=== PATIENT | female | born 1965 | race African-American/Black ===

== ENCOUNTER 2016-05-15 09:08 | Emergency (ER) | payer OTHER ==
[2016-05-15 09:17] VITALS: BP 112/87
[2016-05-15 09:28] LABS: Urine Bilirubin Negative (NEGATIVE); Urine Blood Negative /ul (NEGATIVE); Urine Ketone Negative (NEGATIVE); Urine Nitrite Negative (NEGATIVE); Urine Protein Negative (NEGATIVE); Urine Specific Gravity >=1.030 SP.GR. (1.005-1.010); Urine Urobilinogen Normal (NORMAL); Urine pH 5.5 pH (5.0-7.0)
[2016-05-15 09:37] LABS: Urine Appearance Clear; Urine Bacteria TRACE; Urine Color Yellow; Urine RBC None Seen /hpf (0-5); Urine WBC None Seen /hpf (0-5)
--- OUTSIDE RECORDS SUMMARY | 2016-05-15 10:00 | XMS REPORT | Summary of Care ---
:1965 Author Organization [facility] Address [address] [place] [address] Care Team Providers Name Role Phone Josseline Driscoll Primary Care Physician Encounter Date(s): 03/04/16 - 03/04/16 [facility] Cordelia Murillo, [address] [place], [place] [address] Discharge Disposition: 01 Discharged to Home or Self Care Attending Physician: Harley Machado NP Vital Signs No data available for this section Problem List Condition Effective Dates Status Health Status Informant Anemia(Confirmed) Active Asthma(Confirmed) Active Hypertension(Confirmed) Active Seizure disorder(Confirmed) Active Tuberculosis(Confirmed) Active Allergies, Adverse Reactions, Alerts Substance Reaction Severity Status gabapentin upsets stomach Active ibuprofen upsets stomach Active NSAIDs Active Medications cyclobenzaprine Oral, 0 Refill(s), Start Date: 08/10/15 14:06:00 CDT Start Date: 08/10/15 Status: OrderedDepo-Cobolin mcg, IM, qMonth, 0 Refill(s), Start Date: 08/10/15 14:06:00 CDT Start Date: 08/10/15 Status: OrderedFLUoxetine Oral, 0 Refill(s), Start Date: 08/10/15 14:07:00 CDT Start Date: 08/10/15 Status: OrderedIron Chews mg, Oral, Daily, 0 Refill(s), Start Date: 08/10/15 14:07:00 CDT Start Date: 08/10/15 Status: Orderedlisinopril Oral, Daily, 0 Refill(s), Start Date: 08/10/15 14:09:00 CDT Start Date: 08/10/15 Status: Orderedmeloxicam 15 mg oral tablet tab(s), Oral, Daily, 0 Refill(s), Start Date: 08/10/15 14:07:00 CDT Start Date: 08/10/15 Status: Orderedpantoprazole Daily, 0 Refill(s), Start Date: 08/10/15 14:08:00 CDT Start Date: 08/10/15 Status: OrderedPercocet 5/325 oral tablet 2 tab(s), Oral, q6hr, PRN for pain, X 3 days, # 15 tab(s), 0 Refill(s) Start Date: 09/23/13 Stop Date: 09/26/13 Status: Completedpotassium citrate Oral, 0 Refill(s), Start Date: 08/10/15 14:07:00 CDT Start Date: 08/10/15 Status: Orderedranitidine 0 Refill(s), Start Date: 08/10/15 14:08:00 CDT Start Date: 08/10/15 Status: OrderedtraZODone Oral, 0 Refill(s), Start Date: 08/10/15 14:07:00 CDT Start Date: 08/10/15 Status: OrderedValtrex 1 g oral tablet 1 tab(s), Oral, TID, # 21 tab(s), 0 Refill(s) Start Date: 09/23/13 Stop Date: 09/30/13 Status: Ordered Results No data available for this section Immunizations No data available for this section Procedures Procedure Date Related Diagnosis Body Site Knee replacement1 2013 section 1991 section 1985 section 1984 1right Social History No data available for this section Assessment and Plan No data available for this section
--- OUTSIDE RECORDS SUMMARY | 2016-05-15 10:00 | XMS REPORT | Continuity of Care Document ---
:1965 Author Organization [facility] ([facility]) Address [address] [place] [address] Phone [phone] Care Team Providers Name Role Phone Provider, No-Primary Care Primary Care Provider Unavailable Source Comments This disclosure is being made pursuant to the Care Everywhere program, applicable federal and state laws, and may not contain all informaitonavailable regarding this patient.[facility] ([facility]) Active Allergies and Adverse Reactions Allergen Noted Date Severity Reactions Comments Gabapentin 01/05/2014 Angioedema Ibuprofen Stomach Pain,OTHER flares up her GERD Tramadol 07/29/2012 Nausea & Vomiting Acid reflux Current Medications Prescription Sig. Disp. Refills Start Date End Date Status albuterol (VENTOLIN use 2 Puffs by Active HFA) 90 inhalation every 6 mcg/Actuation hours as needed for inhaler Wheezing. albuterol use 0.5 mL by Active (PROVENTIL) 5 mg/mL inhalation every 6 nebulizer solution hours as needed for Wheezing. fluticasone-salmeter use 1 Puff by Active ol (ADVAIR 100-50) inhalation as needed. 100-50 mcg/Dose inhaler PANTOPRAZOLE SODIUM Take 40 mg by mouth Active (PROTONIX PO) daily. PROMETHAZINE HCL Take 40 mg by mouth Active (PROMETHAZINE PO) as needed. potassium chloride Take 10 mEq by mouth Active SA (K-DUR, KLOR-CON daily. M10) 10 mEq tablet cyclobenzaprine 10 Take 1 Tab by mouth 3 30 Tab 0 08/05/2012 Active mg tablet times daily as needed. Indications: MUSCLE SPASM CALCIUM Take by mouth. Active CARBONATE/VITAMIN D3 (VITAMIN D-3 PO) ranitidine 150 mg Take 1 Tab by mouth 2 30 Tab 11 12/21/2013 Active tablet times daily. Indications: GASTROESOPHAGEAL REFLUX divalproex 500 mg EC Take 2 Tabs by mouth 60 Tab 5 03/09/2014 Active tablet at bedtime. Indications: DEPRESSION ASSOCIATED WITH MANIC DEPRESSIVE DISORDER amitriptyline 50 mg Take 1 Tab by mouth 30 Tab 5 03/09/2014 Active tablet at bedtime. Indications: NEUROPATHIC PAIN lisinopril-hydrochlo Take 1 tablet by Active rothiazide 20-12.5 mouth daily mg per tablet meloxicam 15 mg Take 15 mg by mouth Active tablet daily acyclovir 200 mg Take 200 mg by mouth Active capsule as needed. baclofen 10 mg Take 10 mg by mouth 3 Active tablet times daily as needed. ferrous sulfate 325 Take 325 mg by mouth Active mg (65 mg iron) 2 times daily. tablet FLUoxetine 20 mg Take 3 capsules (60 90 capsule 3 03/22/2015 Active capsule mg total) by mouth daily. ziprasidone 40 mg Take 1 capsule (40 mg 60 capsule 5 03/22/2015 Active capsule total) by mouth 2 times daily. mirtazapine 15 mg Take 1/2 tab, 7.5 mg 30 tablet 3 03/22/2015 Active tablet for 6 days, then increase to 15 mg.. Active Problems Problem Noted Date Obsessive compulsive disorder 12/09/2014 Chronic pain 04/21/2014 Chronic low back pain 04/21/2014 Abnormal uterine bleeding 10/26/2013 Hypertension 10/26/2013 Painful total knee replacement 08/23/2013 Knee pain 06/29/2013 Knee strain 06/29/2013 Epilepsy 06/08/2013 Overview: Patient had been having intractable epilepsy for years. Facet arthropathy, lumbosacral 06/03/2013 Facet arthropathy, lumbar 02/19/2013 Herpes zoster 10/22/2012 Depressive disorder 10/15/2012 Facet arthropathy 08/04/2012 Borderline personality disorder 10/21/2011 Myopia with astigmatism, OU 10/21/2011 Physical therapy 07/19/2008 GERD (gastroesophageal reflux disease) 07/15/2008 Disorder of bone and cartilage, unspecified 02/25/2006 Resolved Problems Problem Noted Date Resolved Date Acromioclavicular (joint) (ligament) sprain 06/10/2008 10/26/2013 Pain in joint, shoulder region 06/07/2008 10/26/2013 Chondromalacia 09/08/2007 10/26/2013 Other chest pain 04/02/2007 10/26/2013 Other synovitis and tenosynovitis 07/28/2006 10/26/2013 Pain in joint, lower leg 07/10/2006 10/26/2013 Pain in limb 07/03/2006 10/26/2013 Lumbago 02/25/2006 10/26/2013 Other convulsions 12/03/2005 10/26/2013 Dysphagia 09/17/2005 10/26/2013 Overview: problem slitter service and setter replacement for go-live --MAL JOINT PAIN-ANKLE 12/17/2002 10/26/2013 Tibialis tendinitis 08/21/1999 10/26/2013 Social History Tobacco Use Types Packs/Day Years Used Date Light Tobacco Smoker Cigarettes 0.1 4 Smokeless Tobacco: Never Used Tobacco Cessation:Ready to Quit: No; Counseling Given: Yes Comments: Alcohol Use Drinks/Week oz/Week Comments Yes 2 Glasses of wine occasional 1 Cans of beer Last Filed Vital Signs Vital Sign Reading Time Taken Blood Pressure 136/77 03/22/2015 3:07 PM BILLET EXAMINER Pulse 85 03/22/2015 3:07 PM BILLET EXAMINER Temperature 36.6 C (97.9 F) 03/22/2015 3:07 PM BILLET EXAMINER Respiratory Rate 15 03/09/2014 4:32 PM BILLET EXAMINER Height 1.689 m (5' 6.5") 04/19/2014 9:27 AM CDT Weight 100 kg (220 lb 7.4 oz) 03/22/2015 3:04 PM BILLET EXAMINER Body Mass Index 35.05 03/22/2015 3:04 PM BILLET EXAMINER Oxygen Saturation 98% 04/19/2014 10:25 AM CDT Plan of Care Health Maintenance Due Date Last Done Comments Hepatitis B Vaccine (1 of 3 - Primary 1965 Series) Tdap Vaccine 06/22/1978 MMR Vaccine 06/22/1985 Td Vaccine 06/22/1985 Pneumococcal Vaccine (1 of 1 - 06/22/1986 PPSV23) Mammogram 06/29/2014 06/29/2013 Influenza Vaccine: Seasonal (#1) 09/11/2015 Cervical Cancer Screening 09/01/2018 09/01/2013, 06/29/2013 Lipid Disorder Screening 02/02/2020 02/01/2015, 06/29/2013, 10/21/2011 Results from Last 3 Months Not on file
[2016-05-15] MEDS ORDERED: ACETAMINOPHEN 325 MG TABLET PO ONE (10:01)
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
[2016-05-15] MEDS ORDERED: ACETAMINOPHEN 325 MG TABLET ONE (10:10)
[2016-05-15] MEDS ORDERED: KETOROLAC TROMETHAMINE 60 MG/2 ML VIAL IM ONE ×2 (10:47→10:56)
== END 2016-05-15 10:47 | disposition home or self-care (01) ==
LOC: ER 09:08
DX: S40.011A Contusion of right shoulder, initial encounter (principal); S83.91XA Sprain of unspecified site of right knee, initial encounter; W10.9XXA Fall (on) (from) unspecified stairs and steps, initial encounter; Y93.9 Activity, unspecified; Y92.008 Other place in unspecified non-institutional (private) residence as the place of occurrence of the external cause

== ENCOUNTER 2016-09-04 05:49 | Inpatient (IN) | payer OTHER ==
--- OUTSIDE RECORDS SUMMARY | 2016-09-04 05:54 | XMS REPORT | Summary of Care ---
:1965 Author Organization [facility] Address [address] [place] [address] Care Team Providers Name Role Phone Josseline Driscoll Primary Care Physician Encounter Date(s): 07/15/16 - 07/15/16 [facility] [address] [place], [place] [address] Discharge Diagnosis: Lumbar degenerative disc disease Discharge Disposition: 01 Discharged to Home or Self Care Attending Physician: Harley Machado NP Referring Physician: SNOW Vieyra Vital Signs Most recent to oldest [Reference Range]: 1 Peripheral Pulse Rate [60-100 bpm] 80 bpm (07/15/16 1:35 PM) Blood Pressure [90-130/60-90 mmHg] 167/89mmHg *HI* (07/15/16 1:35 PM) Mean Arterial Pressure, Cuff 115 mmHg (07/15/16 1:35 PM) Most recent to oldest [Reference Range]: 1 Height/Length Measured 167 cm (07/15/16 1:35 PM) Weight Dosing 105.70 kg1 (07/15/16 1:42 PM) Weight Measured 105.7 kg (07/15/16 1:35 PM) BSA Measured 2.13 m2 (07/15/16 1:35 PM) Body Mass Index Measured 37.9 kg/m2 (07/15/16 1:35 PM) 1Result Comment: This result was because the dosing weight was either not entered or it is>30 days old. This result is based off: Weight Measured July 15, 2016 13:35:00 CDT by Fidel Garcia Wireless Construction Manager Problem List Condition Effective Dates Status Health [...] 08/10/15 14:07:00 CDT Start Date: 08/10/15 Status: Orderedindomethacin 50 mg oral capsule 1 cap(s), Oral, TID, PRN for arthritis, # 30 cap(s), 0 Refill(s), Start Date: 13:58:00 CDT, Pharmacy: [facility], [address],[place], [place] Start Date: 07/15/16 Status: OrderedIron Chews mg, Oral, Daily, 0 [...]
[2016-09-04] MEDS ORDERED: RINGER'S SOLUTION,LACTATED 1,000 ML IV PRN (06:00)
[2016-09-04] MEDS ORDERED: TRANEXAMIC ACID 1,000 MG in NORMAL SALINE 100 ML IV PRN (06:00)
[2016-09-04] MEDS ORDERED: ceFAZolin SODIUM 1 GM VIAL IV PRN (06:00)
[2016-09-04] MEDS ORDERED: MORPHINE SULFATE 15 MG TABLET.SA PO PRN (06:00)
[2016-09-04] MEDS ORDERED: ROPIVACAINE HCL/PF 100 MG, KETOROLAC TROMETHAMINE 30 MG, EPINEPHrine 0.2 MG in NORMAL S... IJ PRN (06:00)
[2016-09-04] MEDS ORDERED: RINGER'S SOLUTION,LACTATED 900 ML IV ONE (07:45)
[2016-09-04] MEDS ORDERED: RINGER'S SOLUTION,LACTATED 1,000 ML IV ONE (08:40)
[2016-09-04] MEDS ORDERED: ACETAMINOPHEN 500 MG TABLET PO PRN (09:59)
[2016-09-04] MEDS ORDERED: HYDROmorphone HCL 1 MG/ML DISP.SYRIN IV PRN (09:59)
[2016-09-04] MEDS ORDERED: ONDANSETRON HCL/PF 2 MG/ML VIAL IV PRN (09:59)
[2016-09-04] MEDS ORDERED: MAGNESIUM HYDROXIDE 30 ML UDC PO PRN (09:59)
[2016-09-04] MEDS ORDERED: ZOLPIDEM TARTRATE 5 MG TABLET PO PRN (09:59)
[2016-09-04] MEDS ORDERED: MAG HYDROX/ALUMINUM HYD/SIMETH 30 ML UDC PO PRN (09:59)
[2016-09-04] MEDS ORDERED: PROMETHAZINE HCL 5 MG in DEXTROSE 5 % IN WATER 50 ML IV PRN ×2 (09:59)
[2016-09-04] MEDS ORDERED: diphenhydrAMINE HCL 50 MG/ML VIAL IV PRN (09:59)
--- NOTE | 2016-09-04 10:03 | OR ---
Operative Report - Dictated Report Narrative: Date: 09/04/2016 Preoperative diagnosis: Left Knee degenerative joint disease. Postoperative diagnosis: Left Knee degenerative joint disease. Procedure: Left Total knee arthroplasty. Surgeon: Binh Rodriguez M.D. Printed Circuit Board Panels Plater: Mehran Sofia PA-C Anesthesia: Spinal with regional block and local periarticular joint injection. Complications: None Specimens: Bone for disposal. Estimated blood loss: Minimal. Tourniquet time: 85 Minutes at 325 millimeters of mercury. Retained implants: Depuy Attune size 6 narrow left lugged cemented posterior stabilized femoral component. Size 5 fixed-bearing cemented tibial platform. 6 by 5 millimeter posterior stabilized cross-linked tibial insert. 38 millimeter medialized patella button. Indications: Mrs. Naylor is a 51-year-old female who has had long-standing left knee pain and arthrosis. This patient was followed in my clinic for period of time with significant complaints of left knee pain consistent with arthritic changes. She had failed conservative measures including, but not limited to, activity modification, passage of time, medications, and other conservative measures. Patient wished to proceed with surgical treatment. The risks, benefits, and alternatives were discussed in clinic. The risks of , blood clots, bleeding, infection, nerve/tendon blood vessel/ injury, malposition of components, intraoperative fracture, postoperative limited range of motion, persistent pain, failure of components, and need for additional procedures. Patient wished to proceed consent was obtained after answering all questions. Procedure: After marking the correct extremity on the floor, the patient was taken to the operating room. A timeout was performed. IV antibiotics consisting of Ancef were administered prior to the procedure. A regional followed by spinal anesthetic was induced by anesthesia, per my request, on the operative table with all bony prominences well-padded. Dunn catheter was placed, and a bump was placed under the operative side buttock. SCDs and YOJANA hose were utilized on the nonoperative leg. A well-padded tourniquet was applied to the operative thigh. The operative leg was then pre-scrubbed with alcohol prepped, and draped in a standard sterile fashion. After exsanguinating the extremity with an Esmarch bandage, the tourniquet was inflated. After marking out the anterior knee for standard incision centered over the patella, the skin was incised and dissected down to the joint retinaculum. The joint retinaculum was marked out as well as the horizontal axis of the patella, and a standard medial parapatellar arthrotomy was then made. The most proximal aspect of the quadriceps tendon and the patella tendon insertion were protected from release. A partial synovectomy was performed as well as a resection of the infrapatellar fat pad. The distal femoral fat pad proximal to the trochlea was also resected using cautery. The soft tissues were elevated off the medial aspect of the proximal tibia using a Morales elevator ensuring that we did not transect the medial collateral ligament. Upon initial evaluation range of motion was approximately 0 degrees to 130 degrees of flexion. There were signs of advanced arthrosis in the medial and patellofemoral joint spaces. There were large marginal osteophytes which were removed with a rongeur. The knee was hyperflexed and the patella was tucked laterally. Protecting the surrounding soft tissues with Homans, an entry drill was placed down the femoral canal using Whitesides line for guidance into the entry point. The intramedullary femoral alignment courtney was utilized in order to cut the distal femur in 5 degrees of valgus resecting 10 millimeters of bone. Next the distal femur was sized to a size 6. A posterior referencing guide was utilized to place the distal femoral cutting block in 3 degrees of external rotation. This was pinned into place. The rotation was confirmed both visually and based on anatomic landmarks. The 4 in 1 cutting jig of the appropriate size was utilized in order to make all bony cuts. The angle wing was used to ensure no notching. Retractors were utilized in order to protect surrounding soft tissues. This cut did not result in any excessive notching. We then cut the box centered over the distal femur. This allowed for resection of the anterior and posterior cruciate ligaments. I then turned my attention to the preparation of the tibia. Using an extra medullary tibial alignment courtney, 3 millimeters of bone was resected off the medial articular surface. This was made perpendicular to the mechanical axis of the joint with the alignment courtney centered over the ankle mortise. The alignment courtney was checked and was noted to be parallel to the mechanical axis, centered over the medial one third of the tibial tubercle, paralleling the anterior surface of the tibia. We then turned our attention to the remaining meniscus and soft tissues. These were removed while protecting the surrounding ligaments and soft tissues. The marginal osteophytes off the anterior, posterior, medial, lateral aspects of the femur and tibia were removed. The tibia was sized out to a size 5. Next the tibia was drilled and punched in an externally rotated position. Next the trial femur and a series of tibial inserts were utilized in order to allow for full extension and maximal flexion. It was found that a 5 millimeter insert gave the best range of motion and stability at multiple flexion points as well as at full extension there was less than 2 mm of gapping both medially and laterally. There is minimal anterior translation with the knee at 90 degrees of flexion and no signs of being able to dislocate the knee. The patella was then prepared. The initial thickness was 22 millimeters. This was reamed down to 13 millimeters parallel to the anterior surface of the patella. It was sized out to a size 38 medialized patella button. This was then drilled and trialed. Without any medial restraint the patella tracked appropriately and did not sublux or dislocate. At this point, it was felt these were the appropriate sized implants, and all trials were removed. The standard periarticular joint injection consisting of ropivacaine, Toradol, and epinephrine were injected into the periarticular joint tissues. The bony surfaces were thoroughly irrigated with a pulsatile- suction saline irrigation device. A bone plug from the prior resected anterior chamfer cut was placed into the drill hole at the distal femur. The bony surfaces were then dried in preparation for placement of the implants. The cement was vacuum mixed per the information systems audit manager's instructions. The cement was placed on the dry bony surfaces and posterior aspect of the implants. The implants were impacted into place, removing all extruded cement. At this point anesthesia administered tranexamic acid per protocol intravenously. The knee was placed in extension with axial loading with the trial insert while the cement cured. Once the cement cured, all remaining extruded cement was removed. The knee was placed through a range of motion with the trial insert to ensure appropriate range of motion and stability. Final range of motion was approximately 0 to 130 degrees. The knee was again thoroughly irrigated with pulsatile saline lavage. The final polyethylene insert was then impacted into place ensuring no retained soft tissues. The remaining periarticular joint injection was injected. A medium Hemovac drain was placed exiting superior laterally. The knee was then placed over a triangle and the arthrotomy was closed with interrupted #1 Vicryl after thoroughly irrigating the joint. The deep and subcutaneous tissues were closed with interrupted oh and 3-0 Vicryl respectively. Skin was closed with a running subcutaneous 3-0 Monocryl and Prineo Dermabond dressing. 4 x 4's, Sof-Rol, and a full leg Aniceto wrap were applied. All sponge, needle, blade, and instrument counts were correct prior to closing the wounds. Postoperative condition: The patient was awoken and transferred to the postanesthesia care unit in stable condition. Plan is to be admitted to the inpatient medical/surgical floor postoperatively for 24 hours of IV antibiotics , physical therapy, occupational therapy, and medical comanagement. Patient will be weightbearing as tolerated with range of motion as tolerated. DVT prophylaxis will be with SCDs, YOJANA hose, and pharmacological anticoagulation. Anticipated hospital stay is approximately 2-4 days.
[2016-09-04] MEDS ORDERED: ALBUTEROL SULFATE 2.5 MG/3 ML VIAL.NEB IH PRN (10:20)
[2016-09-04] MEDS: DEXTROSE 5%-LACTATED RINGERS 1,000 ML IV PRN ×2 (11:16→20:33)
[2016-09-04] MEDS: KETOROLAC TROMETHAMINE 15 MG/ML VIAL IV SCH ×3 (11:16→21:14)
[2016-09-04] MEDS: ceFAZolin SODIUM 1 GM in DEXTROSE 5 % IN WATER 100 ML IV SCH ×6 (11:19→23:24)
--- NOTE | 2016-09-04 13:26 | OR ---
Anesthesia Procedure Note - Anesthesia Procedure Note Date of Service: 09/04/16 Narrative: Vital Signs - Last Taken Temp 36.9 C 09/04/16 11:02 Pulse 86 09/04/16 11:02 Resp 12 09/04/16 11:02 BP 140/79 09/04/16 11:02 Pulse Ox 98 09/04/16 11:02 O2 Oxygen Delivery Method Nasal Cannula 09/04/16 13:24 ANESTHESIA PROCEDURE NOTE Date of Procedure: 09/04/2016 Time of procedure: 7:50 AM. Performed by: HEATH Jack CRNA, MSN Electronics Specialist: Irene Tyson RN. Preprocedure diagnosis: Left total knee arthroplasty pain. Post procedure diagnosis: Same. Procedure: Left femoral nerve block. Indications: Post left total knee arthroplasty pain relief. Findings: See below. Details of the procedure: The patient was brought to OR #4 and placed in supine position. The patient's left femoral area was prepped with chlorhexidine and using ultrasound guidance the left femoral artery and nerve was identified and lidocaine 1% was infiltrated to the skin of the intended injection site. Under ultrasound guidance the femoral nerve was approached until a thigh/leg response was identified on nerve stimulator. Once the stimulator response was effective at less than 0.5 mV and greater than 0.3 mV the femoral nerve was surrounded with 30 mL bupivacaine 0.5% with 1-200,000 epinephrine. Please see radiology/ ultrasound report for details and images of the procedure. EBL: 0 Fluids: N/A. Specimen: N/A. Post procedure condition: The patient tolerated the procedure well. No complications were noted. Thank you for this consultation. Daniel Tijerina CRNA, ARNP, MSN
[2016-09-04] MEDS: oxyCODONE HCL/ACETAMINOPHEN 1 TAB TABLET PO PRN ×2 (17:35→23:25)
[2016-09-04] MEDS: ALBUTEROL SULFATE 2.5 MG/3 ML VIAL.NEB IH SCH (19:09)
[2016-09-04] MEDS: BUDESONIDE 0.25 MG/2 ML VIAL.NEB IH SCH (19:09)
[2016-09-04] MEDS: MORPHINE SULFATE 15 MG TABLET.SA PO SCH (20:36)
[2016-09-04] MEDS: DIVALPROEX SODIUM 250 MG TAB.SR.24H PO SCH (20:36)
[2016-09-04] MEDS: SENNOSIDES/DOCUSATE SODIUM 1 TAB TABLET PO SCH (20:36)
[2016-09-04] MEDS: AMITRIPTYLINE HCL 50 MG TABLET PO SCH (20:38)
[2016-09-04] MEDS: FERROUS SULFATE 325 MG TABLET PO SCH (20:38)
[2016-09-05] MEDS: KETOROLAC TROMETHAMINE 15 MG/ML VIAL IV SCH ×4 (04:00→21:03)
[2016-09-05] MEDS: oxyCODONE HCL/ACETAMINOPHEN 1 TAB TABLET PO PRN ×3 (04:09→17:28)
[2016-09-05 05:44] LABS: Hematocrit 28.9 % (37.0-47.0); Hemoglobin 9.5 gm/dL (12.5-16.0); Mean Cell Volume 99.3 fl (78-100); Mean Corpuscular Hemoglobin 32.6 pg (27-31); Mean Corpuscular Hgb Conc 32.9 g/dl (32-36); Mean Platelet Volume 9.6 fl (6.0-9.5); Platelet Count 197 K/mm3 (150-450); Red Blood Count 2.91 M/mm3 (4.2-5.4); Red Cell Distribution Width 14.2 % (11.5-14.0)
[2016-09-05 06:06] LABS: Anion Gap 7.3 mmol/L (6.8-13.8); Calcium * 9.2 mg/dL (7.9-10.9); Carbon Dioxide 33.4 mmol/L (24-32.6); Potassium 3.7 mmol/L (3.4-4.6)
[2016-09-05] MEDS: BUDESONIDE 0.25 MG/2 ML VIAL.NEB IH SCH ×2 (06:12→18:33)
[2016-09-05] MEDS: ALBUTEROL SULFATE 2.5 MG/3 ML VIAL.NEB IH SCH ×2 (06:13→18:34)
[2016-09-05] MEDS: PANTOPRAZOLE SODIUM 40 MG TABLET.EC PO SCH (06:42)
--- NOTE | 2016-09-05 07:54 | PN ---
Subjective - Date and Time Seen Date: 09/05/16 Time: 07:51 Subjective Narrative: Subjective: Reports no concerns. Was able to get to a chair with therapy. Pain is well-controlled. Voiding without any complications. Tolerating by mouth intake. Denies any nausea or vomiting. Denies calf pain. Slept well. Physical exam: Alert and oriented to person, place and time Left lower Extremity: Palpable dorsalis pedis pulse. Sensation grossly intact to light touch. Dressings clean and dry. Able to flex and extend ankle and toes. No excessive drainage. Calf and thigh are soft and nontender. Assessment: Postop day 1 status post left total knee arthroplasty. Plan: Continue with physical and occupational therapy weightbearing as tolerated. Continue with anticoagulation. 24 hours postoperative prophylactic antibiotics. Pain control with goal to rely on oral medications. Continue bowel regimen. Will need 6 weeks with walker or assitive device to protect joint while ambulating during the recovery process. Discharge planning. Discontinue drain and Dunn catheter. Repeat labs in a.m. Objective - Vitals Vitals: Last Vital Signs Temp 36.9 C 09/05/16 02:55 Pulse 90 09/05/16 06:23 Resp 18 09/05/16 06:23 BP 126/70 09/05/16 02:55 Pulse Ox 94 09/05/16 06:13 - Abnormal Lab Findings Abnormal Lab Findings: Abnormal Lab Results 09/05/16 09/05/16 Range/Units 05:37 05:37 RBC 2.91 L (4.2-5.4) M/mm3 Hgb 9.5 L (12.5-16.0) gm/dL Hct 28.9 L (37.0-47.0) % MCH 32.6 H (27-31) pg RDW 14.2 H (11.5-14.0) % MPV 9.6 H (6.0-9.5) fl Carbon Dioxide 33.4 H (24-32.6) mmol/L Cauti Physician Documentation - Urinary Catheter Management Uretheral (Dunn) Date of Insertion: 09/04/16 Time of Insertion: 08:10 Assessment/Plan - Problems/Diagnosis (1) Acute blood loss anemia Problem: Acute (2) Status post total left knee replacement Problem: Acute (3) Seizure disorder Problem: Chronic (4) Asthma Problem: Chronic (5) Depression Problem: Chronic (6) GERD (gastroesophageal reflux disease) Problem: Chronic (7) Hypertension Problem: Chronic
[2016-09-05] MEDS: FERROUS SULFATE 325 MG TABLET PO SCH ×2 (10:17→21:03)
[2016-09-05] MEDS: POTASSIUM CHLORIDE 10 MEQ TABLET.SA PO SCH (10:17)
[2016-09-05] MEDS: MORPHINE SULFATE 15 MG TABLET.SA PO SCH ×2 (10:17→21:02)
[2016-09-05] MEDS: ENOXAPARIN SODIUM 40 MG/0.4 ML SYRG SC SCH (10:17)
[2016-09-05] MEDS: LURASIDONE HCL 80 MG TABLET PO SCH (10:18)
[2016-09-05] MEDS: CHOLECALCIFEROL 1,000 UNIT CAPSULE PO SCH (10:18)
[2016-09-05] MEDS: DIVALPROEX SODIUM 500 MG TAB.SR.24H PO SCH (10:18)
[2016-09-05] MEDS: valACYclovir HCL 500 MG TABLET PO SCH (10:18)
[2016-09-05] MEDS: HYDROCHLOROTHIAZIDE 25 MG TABLET PO SCH (10:19)
[2016-09-05] MEDS: LISINOPRIL 20 MG TABLET PO SCH (10:19)
[2016-09-05] MEDS: FAMOTIDINE 20 MG TABLET PO SCH (10:19)
[2016-09-05] MEDS: DIVALPROEX SODIUM 250 MG TAB.SR.24H PO SCH (21:02)
[2016-09-05] MEDS: SENNOSIDES/DOCUSATE SODIUM 1 TAB TABLET PO SCH (21:03)
[2016-09-05] MEDS: AMITRIPTYLINE HCL 50 MG TABLET PO SCH (21:03)
[2016-09-06] MEDS: KETOROLAC TROMETHAMINE 15 MG/ML VIAL IV SCH (03:52)
[2016-09-06 05:57] LABS: Hematocrit 30.6 % (37.0-47.0); Mean Corpuscular Hemoglobin 32.7 pg (27-31); Mean Corpuscular Hgb Conc 32.7 g/dl (32-36); Mean Platelet Volume 10.3 fl (6.0-9.5); Platelet Count 185 K/mm3 (150-450); Red Blood Count 3.06 M/mm3 (4.2-5.4); Red Cell Distribution Width 14.1 % (11.5-14.0); White Blood Count 12.3 K/mm3 (4.0-10.5)
[2016-09-06] MEDS: BUDESONIDE 0.25 MG/2 ML VIAL.NEB IH SCH (06:05)
[2016-09-06] MEDS: ALBUTEROL SULFATE 2.5 MG/3 ML VIAL.NEB IH SCH (06:07)
[2016-09-06] MEDS: PANTOPRAZOLE SODIUM 40 MG TABLET.EC PO SCH (06:23)
[2016-09-06] MEDS: oxyCODONE HCL/ACETAMINOPHEN 1 TAB TABLET PO PRN (06:35)
[2016-09-06 06:36] LABS: Anion Gap 10.4 mmol/L (6.8-13.8); BUN/Creatinine Ratio 10.9 (9.0-21.6); Calcium * 8.9 mg/dL (7.9-10.9); Carbon Dioxide 31.7 mmol/L (24-32.6); Estimated Creat Clear 39.4; Potassium 4.1 mmol/L (3.4-4.6)
--- NOTE | 2016-09-06 09:08 | DS ---
(1) Acute blood loss anemia Problem: Acute (2) Status post total left knee replacement Problem: Acute (3) Seizure disorder Problem: Chronic (4) Asthma Problem: Chronic (5) Depression Problem: Chronic (6) GERD (gastroesophageal reflux disease) Problem: Chronic (7) Hypertension Problem: Chronic Description of Stay: Mrs. Naylor was admitted to the floor after undergoing left total knee arthroplasty. Tolerated this well. Was admitted to the floor postoperatively for 24 hours of IV antibiotics, pain control, medical comanagement, and occupational and physical therapy. OT and PT were consulted to assist with activities of daily living and ambulation. Was made weightbearing as tolerated with range of motion as tolerated. Pain was initially controlled with IV regimen. This was transitioned to oral once tolerating a by mouth intake. Was resumed on home diet and medications. Had a Dunn catheter inserted and the operating room which was discontinued on postoperative day 1. A drain was placed intraoperatively into the knee which was discontinued on postoperative day 1. Lovenox SCD and YOJANA hose were utilized for DVT prophylaxis. Vital signs remained stable to the hospital course. Serial labs were obtained which showed a final hemoglobin of 10.0 grams. BMP was reviewed and was stable. Physical examination throughout the hospital course showed an extremity that had sensation that was intact to light touch, palpable pulses, a benign wound, motor intact to the toes, ankle, and knee. Knee range of motion was approximately 5 degrees to 60 degrees. Once an oral pain regimen was tolerated and physical therapy goals were met, it was felt that they were stable for discharge to home. Instructions: Continue with weightbearing as tolerated and range of motion as tolerated. As long as there is noticed discharge from the wound she is okay to shower and get this wet. She is instructed not to soak or submerge the wounds. If there is any drainage she's instructed to keep the wound clean and dry and cover with dry gauze and tape. Change every 2-3 days as needed. Continue with physical therapy. Resume home diet. Report any fever over 101.5 Fahrenheit, uncontrolled pain, increased drainage, foul odor of drainage, new or increased calf pain or shortness of breath, or any other significant complaints. A 325mg dialy aspirin will be started after finishing anticoagulation if not allergic. Continue with YOJANA hose on the operative extremity until instructed otherwise. No driving until instructed otherwise. Follow up in approximately 10-14 days. Procedures Performed: see notes below List Procedures: Left total knee arthroplasty Discharge Disposition: Home self care Disposition: Home self-care Condition: Good Discharge Activity: Activity as tolerated, Weight bearing Discharge Diet: General/regular food Assisted Therapy: Physicial Therapy Referrals: Josseline Driscoll FNP [Primary Care Provider] - Additional Patient Instructions (free text): Physical Therapy at [facility] on FridaySep.10 at 10:00 am, go to ER registration first day. Follow up with Orthopedics on 09-19-16 at 10:45am. Prescriptions (Any new or edited meds): Enoxaparin Sodium [Lovenox] 40 mg SC Q24H #7 disp.syrin Morphine Sulfate [Ms Contin] 15 mg PO Q12H #20 tablet.sa Sennosides/Docusate Sodium [Senokot-S] 2 tab PO HS #60 tablet oxyCODONE HCL/ACETAMINOPHEN [Percocet 5 MG/325 MG] 2 tab PO Q4H PRN #90 tablet PRN Reason: Moderate Pain Complete Home Medications List: Complete Home Medication List: Albuterol Sulfate [Proair Hfa] 2 puff IH Q4H PRN 05/12/15 Divalproex Sodium [Depakote ER] 750 mg PO HS 05/12/15 Ferrous Sulfate 325 mg PO BID 05/12/15 Fluticasone/Salmeterol [Advair 100-50 Diskus] 1 puff IH BID 05/12/15 Pantoprazole Sodium [Protonix] 40 mg PO DAILY 05/12/15 Potassium Chloride 10 meq PO DAILY 05/12/15 Cholecalciferol (Vitamin D3) [Vitamin D3] 2,000 unit PO DAILY 12/08/15 Ranitidine HCl [Zantac] 150 mg PO DAILY 12/08/15 Albuterol Sulfate 1.25 mg IH Q8H PRN 01/29/16 valACYclovir HCL [Valtrex] 500 mg PO DAILY 02/09/16 Amitriptyline HCl 150 mg PO HS 08/28/16 Divalproex Sodium [Depakote ER] 500 mg PO QAM 08/28/16 Lisinopril/Hydrochlorothiazide [Lisinopril-Hctz 20-25 mg Tab] 1 each PO DAILY Lurasidone HCl [Latuda] 80 mg PO DAILY 09/04/16 Enoxaparin Sodium [Lovenox] 40 mg SC Q24H #7 disp.syrin 09/06/16 Morphine Sulfate [Ms Contin] 15 mg PO Q12H #20 tablet.sa 09/06/16 Sennosides/Docusate Sodium [Senokot-S] 2 tab PO HS #60 tablet 09/06/16 oxyCODONE HCL/ACETAMINOPHEN [Percocet 5 MG/325 MG] 2 tab PO Q4H PRN #90 tablet 09/06/16 Amb Orders for Discharge: PT Evaluation and Treatment Facility: [facility], Location: Rehabilitation Services
[2016-09-06] MEDS: POTASSIUM CHLORIDE 10 MEQ TABLET.SA PO SCH (09:23)
[2016-09-06] MEDS: DIVALPROEX SODIUM 500 MG TAB.SR.24H PO SCH (09:23)
[2016-09-06] MEDS: FAMOTIDINE 20 MG TABLET PO SCH (09:23)
[2016-09-06] MEDS: ENOXAPARIN SODIUM 40 MG/0.4 ML SYRG SC SCH (09:23)
[2016-09-06] MEDS: FERROUS SULFATE 325 MG TABLET PO SCH (09:23)
[2016-09-06] MEDS: LURASIDONE HCL 80 MG TABLET PO SCH (09:23)
[2016-09-06] MEDS: HYDROCHLOROTHIAZIDE 25 MG TABLET PO SCH (09:23)
[2016-09-06] MEDS: LISINOPRIL 20 MG TABLET PO SCH (09:24)
[2016-09-06] MEDS: valACYclovir HCL 500 MG TABLET PO SCH (09:24)
[2016-09-06] MEDS: CHOLECALCIFEROL 1,000 UNIT CAPSULE PO SCH (09:24)
[2016-09-06] MEDS: MORPHINE SULFATE 15 MG TABLET.SA PO SCH (09:44)
[2016-09-06 10:16] VITALS: BP 104/62
== END 2016-09-06 13:25 | disposition home or self-care (01) | DRG 470 ==
LOC: MS 05:49
PROVIDERS: ADMIT Orthopaedic Surgery; ATTEND Orthopaedic Surgery
PROC: 0SRD0J9 Replacement of Left Knee Joint with Synthetic Substitute, Cemented, Open Approach (ICD-10-PCS; principal; 2016-09-04 08:00)
DX: M17.12 Unilateral primary osteoarthritis, left knee (principal); D62 Acute posthemorrhagic anemia; F20.0 Paranoid schizophrenia; I10 Essential (primary) hypertension; K21.9 Gastro-esophageal reflux disease without esophagitis; J45.909 Unspecified asthma, uncomplicated
CPT/HCPCS: 27447; 36415; 73560; 80048; 85027; 94640; 97110; 97116; 97162; 97165; 97530; J2405